=== PATIENT | female | born 1985 | race Native Hawaiian/Other Pacific Islander ===

== ENCOUNTER 2016-05-12 23:32 | Emergency (ER) | payer OTHER ==
[2016-05-12 23:32] VITALS: BMI 26.3
[2016-05-13 00:55] VITALS: RESP 18
[2016-05-13] MEDS ORDERED: Sodium Chloride 0.9% 1,000 ML IV STA (01:07)
[2016-05-13 01:33] LABS: RBC URINE 2 /hpf (0-3); URINE BILIRUBIN NEGATIVE (NEGATIVE); URINE BLOOD MODERATE (NEGATIVE); URINE COLOR STRAW (YELLOW); URINE GLUCOSE (UA) NEG (Normal); URINE KETONE NEGATIVE (NEGATIVE); URINE LEUKOCYTE ESTERASE SMALL Leu/uL (Negative); URINE PROTEIN NEGATIVE (NEGATIVE); URINE UROBILINOGEN 0.2-1.0 mg/dL (0.2-1.0); WBC URINE 2 /hpf (0-5)
[2016-05-13 01:48] LABS: BASO # 0.1 K/uL (0.0-0.2); BASO % 0.9 % (0.0-2.0); EOS # 0.2 K/uL (0.0-0.7); EOS % 1.3 % (0.0-4.0); LYMPH # 1.1 K/uL (1.0-4.3); MEAN CORPUSCULAR HEMOGLOBIN 31.7 pg (27.0-31.0); MEAN PLATELET VOLUME 7.4 fl (7.2-11.7); MONO # 0.3 K/uL (0.0-0.8); MONO % 2.1 % (0.0-10.0); NEUT # 10.6 K/uL (1.8-7.0); NEUT % 86.7 % (50.0-75.0); PLATELET COUNT 292 K/uL (130-400); RED CELL DISTRIBUTION WIDTH 13.2 % (11.5-14.5); WHITE BLOOD COUNT 12.2 K/uL (4.8-10.8)
[2016-05-13 01:59] LABS: ALB/GLOB RATIO 1.1 (1.0-2.1); ALKALINE PHOSPHATASE 128 U/L (38-126); ALT/SGPT 31 U/L (9-52); AST/SGOT 29 U/L (14-36); BILIRUBIN,TOTAL 0.5 mg/dl (0.2-1.3); BLOOD UREA NITROGEN 12 mg/dl (7-17); CALCIUM 9.5 mg/dL (8.4-10.2); CARBON DIOXIDE 21 mmol/L (22-30); CHLORIDE 101 mmol/L (98-107); GFR AFRICAN-AMERICAN > 60; GLUCOSE,RANDOM 106 mg/dL (65-105); POTASSIUM 3.9 MMOL/L (3.6-5.0); SODIUM 136 mmol/l (132-148); TOTAL PROTEIN 7.7 G/DL (6.3-8.2)
--- NOTE | 2016-05-13 03:17 | US ---
EXAM: US Pelvis Complete, Transabdominal. US Pelvis, Transvaginal. CLINICAL HISTORY: 30 years old, female; Signs and symptoms; Other: Fever; Additional info: Possible rpoc TECHNIQUE: Real-time transabdominal and transvaginal pelvic ultrasound (complete) with image documentation. Transvaginal imaging was used for better evaluation of the endometrium and adnexa. COMPARISON: No relevant prior studies available. FINDINGS: Uterus/cervix: Unremarkable. Normal endometrial stripe thickness. No myometrial mass. Right ovary: Unremarkable. No mass. Normal blood flow. Left ovary: Unremarkable. No mass. Normal blood flow. Free fluid: No free fluid. Bladder: Unremarkable as visualized. Wall is normal thickness for degree of distention. IMPRESSION: Normal pelvic ultrasound. EXAM: US Pelvis, Transvaginal. CLINICAL HISTORY: 30 years old, female; Signs and symptoms; Other: Fever; Additional info: Possible rpoc TECHNIQUE: Real-time transvaginal pelvic ultrasound (complete) with image documentation. Transvaginal imaging was used for better evaluation of the endometrium and adnexa. EXAM DATE/TIME: 05/13/2016 1:04 AM COMPARISON: No relevant prior studies available. FINDINGS: The uterus measures 10 x 7 x 8 cm. The endometrium measures 18 mm. There is complex avascular fluid in the endometrial canal presumably representing blood. There is a somewhat rounded 1.3 cm area of increased echogenicity within the myometrium of the posterior uterus. There are images demonstrate vascularity to this area, however there is also vascularity throughout the surrounding myometrium. There does not appear to be vascularity extending to the endometrium. The right ovary is normal. The left ovary is normal. Color flow and doppler vascular waveforms were demonstrated to both ovaries. IMPRESSION: Complex avascular fluid within the endometrial canal presumably representing blood. Small echogenic area in the posterior uterine wall. There is surrounding vascularity demonstrated throughout the wall however I do not see a focal area of hyper vascularity with connection to the endometrium, which would be more typical imaging features of retained products. I recommend short term followup ultrasound to assess for stability. Given a history of fever, CT with intravenous contrast would be another option to exclude abscess formation in the pelvis.
--- NOTE | 2016-05-13 03:21 | ED PDOC ---
HPI: Skin/Bite Injury Time Seen by Provider: 05/13/16 01:03 Chief Complaint (Nursing): Fever Chief Complaint (Provider): fever, left breast pain History Per: Patient History/Exam Limitations: no limitations Onset/Duration Of Symptoms: Hrs (6) Current Symptoms Are (Timing): Still Present Severity: Mild Additional Complaint(s): Patients is 30 yo [place] female with no PMHx who presents to ED for eval of acute fever 6 hours ago associated with diffuse myalgias, headache and left breast tendnerness. Patient is breast feeding regularly as she is 2 weeks . She reports she noticed left breast was mildly red and tender. She denies abd pain/cough/N/V/D. Past Medical History Reviewed: Historical Data, Nursing Documentation, Vital Signs Vital Signs: Last Vital Signs Temp 103.0 F H 05/13/16 00:51 Pulse 112 H 05/13/16 00:51 Resp 18 05/13/16 00:51 BP Pulse Ox 99 05/13/16 00:51 - Medical History PMH: No Chronic Diseases - Surgical History Surgical History: No Surg Hx - Family History Family History: States: No Known Family Hx - Living Arrangements Living Arrangements: With Family - Social History Current smoker - smoking cessation education provided: No Ex-Smoker (has not smoked in the last 12 months): No Alcohol: None Drugs: Denies - Home Medications Home Medications: Ambulatory Orders Medication Instructions Recorded Multivit/Folic Acid/I 1 tab PO DAILY 04/25/16 [ Plus] Amoxicillin/Clavulanate [Augmentin 1 tab PO BID #20 tab 05/13/16 875 MG-125 MG] - Allergies Allergies/Adverse Reactions: Allergies Allergy/AdvReac Type Severity Reaction Status Date / Time No Known Allergies Allergy Verified 04/25/16 17:37 Review of Systems ROS Statement: Except As Marked, All Systems Reviewed And Found Negative Constitutional: Positive for: Fever, Chills, Malaise Skin: Positive for: Other (left breast tenderness/redness) Neurological: Positive for: Headache Physical Exam - Reviewed Nursing Documentation Reviewed: Yes Vital Signs Reviewed: Yes - Physical Exam Appears: Positive for: Non-toxic Head Exam: Positive for: ATRAUMATIC, NORMOCEPHALIC Skin: Positive for: Normal Color, Warm, Dry Eye Exam: Positive for: Normal appearance, EOMI, PERRL ENT: Positive for: Normal ENT Inspection Neck: Positive for: Normal, Painless ROM, Supple Cardiovascular/Chest: Positive for: Regular Rate, Rhythm, Other (left breast is mildly edematous and warm to touch; mild induration noted w/o fluctuance. [employer] Jeanna Moura). Negative for: Edema, Gallop, JVD Respiratory: Positive for: Normal Breath Sounds. Negative for: Crackles, Rales , Wheezing Gastrointestinal/Abdominal: Positive for: Normal Exam, Bowel Sounds, Soft. Negative for: Tenderness - Laboratory Results Result Diagrams: 05/13/16 01:42 05/13/16 01:42 - ECG O2 Sat by Pulse Oximetry: 99 Medical Decision Making Medical Decision Makin yo female with febrile illness in setting of clinical left breast mastitis and 2 weeks post Labs, U/S, IV fluids, and Tylenol ordered Labs reviewed show no clinically sig abnormalities U/S does not show evidence of RPOC Patient feels better and is stable for dc home DX Mastitis, Fever RX Augmentin, FU Dr Mtz in 2 days, Fluids and Tylenol advised Pt encouraged to continue breast feeding Dr Walton made aware of case (covers Dr Mtz) Disposition - Clinical Impression Clinical Impression: Mastitis, Discussed With DrTrell: Oral Walton Counseled Patient/Family Regarding: Studies Performed, Diagnosis, Need For Followup, Rx Given - Disposition Disposition: Routine/Home Disposition Time: 03:31 Condition: IMPROVED Prescriptions: Amoxicillin/Clavulanate [Augmentin 875 MG-125 MG] 1 tab PO BID #20 tab Instructions: Mastitis (ED)
[2016-05-13 03:32] LABS: NEUTROPHIL 84 % (42-75); TOTAL CELLS COUNTED 100
[2016-05-13] MEDS ORDERED: Amoxicillin-Clav 875-125 mg Tab PO STA (03:32)
[2016-05-13 03:41] LABS: PARTIAL THROMBOPLASTIN TIME 24.7 SECONDS (23.3-32.5)
[2016-05-13] MEDS ORDERED: Amoxicillin-Clav 875-125 mg Tab PO ONE (03:43)
[2016-05-13 03:48] VITALS: BP 84/47; PULSE 84; TEMP 98.3; O2SAT 98
--- NOTE | 2016-05-13 10:45 | CARD ---
APPROVED REPORT EKG Measurement Heart [id number] <Conclusion> Normal sinus rhythm Normal ECG
== END 2016-05-13 04:16 | disposition home or self-care (01) ==
LOC: H.ER 23:32
DX: O91.22 Nonpurulent mastitis associated with the puerperium (principal); R50.9 Fever, unspecified